=== PATIENT | male | born 1985 | race African-American/Black ===

== ENCOUNTER 2016-10-07 15:48 | Emergency (ER) | payer SELFPAY ==
[~2016-10-07] VITALS: Ht 162.6 cm; Wt 83.0 kg
[2016-10-07 16:47] VITALS: BP 138/78
[2016-10-07] MEDS ORDERED: CYCL10TA2 PO (16:51)
--- NOTE | 2016-10-07 16:52 | PHYS DOC ---
Adult General Chief Complaint Chief Complaint: Neck Pain HPI HPI Patient is a 31 year old male presents to emergency department stating that he is having right upper back tenderness pain and discomfort. He states that he woke up with an approximately 2 days ago. He states yesterday when he woke up he had increased difficulty with turning his head. Denies fever, chills or any nausea vomiting denies any recent injuries such as motor vehicle crashes or falls. Patient states that the pain does radiate down into his right upper arm. Denies any numbness or tingling. Review of Systems Review of Systems Constitutional: Denies fever or chills [] Eyes: Denies change in visual acuity, redness, or eye pain [] HENT: Denies nasal congestion or sore throat [] Respiratory: Denies cough or shortness of breath [] Cardiovascular: No additional information not addressed in HPI [] GI: Denies abdominal pain, nausea, vomiting, bloody stools or diarrhea [] : Denies dysuria or hematuria [] Musculoskeletal: Right upper back pain and discomfort that goes into the neck and down into the right arm. Integument: Denies rash or skin lesions [] Neurologic: Denies headache, focal weakness or sensory changes [] Endocrine: Denies polyuria or polydipsia [] Physical Exam Physical Exam Constitutional: Well developed, well nourished, no acute distress, non-toxic appearance. [] HENT: Normocephalic, atraumatic, bilateral external ears normal, oropharynx moist, no oral exudates, nose normal. [] Eyes: PERRLA, EOMI, conjunctiva normal, no discharge. [] Neck: Normal range of motion, no tenderness, supple, no stridor. [] Cardiovascular:Heart rate regular rhythm, no murmur [] Lungs & Thorax: Bilateral breath sounds clear to auscultation [] Skin: Warm, dry, no erythema, no rash. [] Back: No cervical spine, thoracic spine, lumbar spine tenderness, no crepitus, no deformities, no step-offs. No CVA tenderness. Patient did have tenderness in the right upper shoulder up into the neck area. Extremities: No tenderness, no cyanosis, no clubbing, ROM intact, no edema. Patient with equal strength bilaterally 2+ peripheral pulses Refill brisk less than 2 seconds. Neurologic: Alert and oriented X 3, normal motor function, normal sensory function, no focal deficits noted. [] Psychologic: Affect normal, judgement normal, mood normal. [] EKG EKG [] Radiology/Procedures Radiology/Procedures [] Course & Med Decision Making Course & Med Decision Making Pertinent Labs and Imaging studies reviewed. (See chart for details) Patient will be discharged home with recommendations for ice packs on 20 minutes off 20 minutes several times a day. Recommended ibuprofen 800 mg every 8 hours with food stop taking few develop an upset stomach. Patient was also explained that Flexeril will cause drowsiness do not take any be alert and oriented. Patient was recommended follow-up the primary care physician in the next 5-7 days. Signs symptoms to return back to emergency department as been provided. Patient agrees with discharge instructions, treatment regimens and follow-up recommendations. Patient's questions were all answered at bedside. [] Dragon Disclaimer Dragon Disclaimer This electronic medical record was generated, in whole or in part, using a voice recognition dictation system. Departure Departure Impression: Primary Impression: Torticollis, acute Disposition: 01 HOME, SELF-CARE Condition: STABLE Referrals: NO PCP (PCP) Patient Instructions: Torticollis, Acute Additional Instructions: Activity as tolerated. Ibuprofen 800 mg every 8 hours with food stop taking few develop an upset stomach. Flexeril for help with muscle spasms. This medication will cause drowsiness do not take any be alert and oriented. Ice packs on 20 minutes off 20 minutes several times a day. Follow-up with primary care physician in the next 5-7 days. Return back to emergency prior signs symptoms become worse. Scripts Cyclobenzaprine Hcl (CYCLOBENZAPRINE HCL) 10 Mg Tablet 10 MG PO TID, #30 TAB Prov: RACIEL COCHRAN APRN 10/07/16 RACIEL COCHRAN APRN Oct 07, 2016 16:51
== END 2016-10-07 17:15 | disposition home or self-care (01) ==
LOC: ER 15:48 → EDSEX 15:48 → ER 17:15
DX: M43.6 Torticollis (principal)
CPT/HCPCS: 99283

== ENCOUNTER → 2017-08-25 | Outpatient (CLI) | payer BC | END | disposition home or self-care (01) | LOC: ECHO 13:31 | DX: R07.89 Other chest pain (principal) | CPT/HCPCS: 93017; 93350 ==